=== PATIENT | male | born 1990 | race Caucasian/White ===

== ENCOUNTER 2024-07-07 16:04 | Emergency (ER) | payer OTHER, SELFPAY ==
[2024-07-07 16:14] VITALS: BP 154/97
[2024-07-07 16:32] LABS: % Basophils 0.3 % (0-2); % Eosinophils 2.3 % (0-6); % Immature Granulocytes 0.4 % (0-0.5); % Lymphocytes 19.7 % (20.5-51.1); % Monocytes 8.1 % (1.7-9.3); % Neutrophils 69.2 % (42.2-75.2); Absolute Eosinophils 0.2 10^3/uL (0-0.7); Absolute Lymphocytes 1.9 10^3/uL (1.2-3.4); Absolute Monocytes 0.8 10^3/uL (0.1-0.6); Absolute Neutrophils 6.6 10^3/uL (1.4-6.5); Hematocrit 44.1 % (39.0-52.0); Hemoglobin 14.5 g/dL (13.0-18.0); Mean Corp Hgb Conc. 32.9 g/dL (33.0-37.0); Mean Corpuscular Hgb 28.8 pg (27.0-31.0); Mean Corpuscular Volume 87.7 fL (80.0-94.0); Mean Platelet Volume 9.5 fL (7.4-10.4); Nucleated Red Blood Cells % 0 % (-); Platelet Count 244 10^3/uL (130-400); Red Blood Cell Count 5.03 10^6/uL (4.70-6.10); Red Cell Dist. Width 13.4 % (11.5-14.5); White Blood Cell Count 9.5 10^3/uL (4.8-10.8)
[2024-07-07 16:50] LABS: Blood Urea Nitrogen 7 mg/dl (9-20); Calcium 9.9 mg/dl (8.4-10.2); Carbon Dioxide 30 mmol/L (22-30); Chloride 102 mmol/L (98-107); Glucose 108 mg/dl (70-99); Potassium 4.2 mmol/L (3.5-5.1); Sodium 138 mmol/L (135-145); eGFR > 60.00
[2024-07-07 18:02] VITALS: BMI 25.4
[2024-07-07 18:10] VITALS: BP 125/94
--- NOTE | 2024-07-07 18:40 | ED.GENMED ---
History of Present Illness
General
Chief Complaint: Facial Problem
Source: patient
Exam Limitations: none
Time Seen by Provider: 07/07/24 18:28
Nursing documentation reviewed up to this point in time: agreed with
History of Present Illness
History of Present Illness:
Patient presents to ED secondary to left facial swelling with continual toothache, after tooth fracture while he was eating yesterday afternoon. Patient is currently taking amoxicillin, secondary to potential sinusitis, diagnosed by primary care
physician. Denies trauma. Denies fever or chills. Denies sore throat or difficulty swallowing. Denies shortness of breath. Denies loss of appetite. Patient has an appointment with his dentist tomorrow morning.
Past History
Past History
ED Past Medical History: None
ED Past Surgical History: None
Review of Systems
Review of Systems
Allergies reviewed?: Yes
All Other Systems: ROS reviewed and negative except as documented in HPI and ROS
Constitutional: Reports no symptoms; Denies fever
EENT: Reports other (Tooth fracture and facial swelling)
ABD/GI: Reports no symptoms
Musculoskeletal: Reports no symptoms
Skin: Denies rash
Neurological: Reports no symptoms
Phy Exam
Physical Exam
Physical Exam:
Physical Exam
General: mild painful distress, not acutely ill. afebrile
Head: nc/at. eomi
Neck: supple. no meningeal signs. normal posterior pharynx. #9 tooth: fx noted with mild gingival swelling.
Abdomen: normal bowel sounds. not tender.
Neuro: alert and oriented. no focal neurological deficits
Skin: mild left facial swelling noted with discoloration/erythema/open wound
Psychiatric: well kept. interactive and cooperative
Extremities: no edema. no calf tenderness.
Course
Orders/Labs/Results
Orders:
Orders
07/07/24 16:23
BMP [Basic Metabolic Panel] Urgent
Complete Blood Count/With Diff Urgent
07/07/24 18:39
Clindamycin HCl [Cleocin] 450 mg PO NOW STA
Abnormal Lab Results
07/07/24
16:23
MCHC 32.9 L g/dL
(33.0-37.0)
Absolute Neuts (auto) 6.6 H 10^3/uL
(1.4-6.5)
Absolute Monos (auto) 0.8 H 10^3/uL
(0.1-0.6)
Lymphocytes % 19.7 L %
(20.5-51.1)
BUN 7 L mg/dl
(9-20)
Glucose 108 H mg/dl
(70-99)
07/07/24 16:23
07/07/24 16:23
Vital Signs
Initial and Last Documented VS:
Initial Vital Signs
Temp Pulse Resp BP Pulse Ox
98.2 F 98 18 154/97 99
07/07/24 16:14 07/07/24 16:14 07/07/24 16:14 07/07/24 16:14 07/07/24 16:14
Last Documented Vital Signs
Temp Pulse Resp BP Pulse Ox
97.8 F 100 16 129/90 100
07/07/24 19:11 07/07/24 19:11 07/07/24 19:11 07/07/24 19:11 07/07/24 19:11
MDM/Problems Addressed
MDM/Problems Addressed:
Patient presents with obvious tooth fracture, with associated gingival swelling. Mild left facial swelling noted, likely reactive versus inflammatory response. No evidence of systemic infection nor any airway compromise at this time. As such,
especially in light of patient's appointment with dentist tomorrow, patient will be started on clindamycin and discontinue amoxicillin.
*Critical Care Note
Total Time (30-74mins, 75-104mins- exclusive of procedures): Not Applicable
ED Attending Note
-
Portions of this chart may have been created with voice recognition software.� Occasional wrong word or��sound alike� substitutions may have occurred due to the inherent limitations of voice recognition software.
Discharge Plan
Departure
Patient Disposition: Home (Routine Discharge)
Date of Disposition: 07/07/24
Time of Disposition: 18:40
Patient with high blood pressure during this ER visit?: Yes
Condition: Good
Discharge Problem:
Fracture of tooth
Instructions: Fractured Tooth (DC)
Prescriptions:
New
clindamycin HCl 300 mg capsule
300 mg PO TID Qty: 20 0RF
Referrals:
Suyapa Sharma MD [Family Provider] -
Activity Restrictions/Additional Instructions:
As discussed, please follow-up with your dentist tomorrow for reevaluation. Your prescription has been sent electronically to [facility] pharmacy in [place]
Interventions
Interventions:
*Risk Screen - Suicide Last Done: 07/07/24 18:02
*General Assessment Last Done: 07/07/24 16:14
*Neglect/Abuse Screening Last Done: 07/07/24 18:02
ED- Fall Risk Assessment Last Done: 07/07/24 18:02
*ED COVID-19 Vaccine History Last Done: 07/07/24 18:02
*Nursing Disposition Last Done: 07/07/24 19:11
ED- Cardiac Assessment Last Done: 07/07/24 18:02
ED- Neurological Assessment Last Done: 07/07/24 18:02
ED- Pulmonary Assessment Last Done: 07/07/24 18:02
ED-Skin Assessment Last Done: 07/07/24 18:02
Discharge Date and Time
Discharge Date/Time: 07/07/24 19:13
Print Language: PERUVIAN
[2024-07-07] MEDS: CLEOCIN 450 MG PO (18:59)
[2024-07-07 19:00] VITALS: BP 129/90
--- NOTE | 2024-07-07 19:07 | EDRN ---
Reviewed discharge instructions with patient. Verbalized understanding. Ambulated with steady gait to the lobby.
[2024-07-07 19:11] VITALS: BP 129/90
== END 2024-07-07 19:13 | disposition home or self-care (01) ==
LOC: EMR 16:04
PROVIDERS: EMERGENCY PHYSICIAN Emergency Medicine; FAMILY PHYSICIAN Internal Medicine
DX: S02.5XXA Fracture of tooth (traumatic), initial encounter for closed fracture (principal); X58.XXXA Exposure to other specified factors, initial encounter
CPT/HCPCS: 99283; 80048; 85025